=== PATIENT | female | born 1935 | race Caucasian/White ===

== ENCOUNTER 2020-05-31 07:21 | Day surgery (SDC) | payer MEDICARE, MEDICAID, SELFPAY ==
[2020-05-31] MEDS: cosyntropin 0.25 mg SDV IVP (09:05)
[2020-05-31 09:14] VITALS: BP 156/31; PULSE 65; RESP 18; TEMP 36.2; O2SAT 100; BMI 47.8
[2020-05-31 11:39] LABS: Cosyntropin 1 Hour 30.58 mcg/dL
[2020-05-31 11:40] LABS: Cosyntropin 30 Minute 22.55 mcg/dL
[2020-05-31 11:41] LABS: Cosyntropin Baseline 13.64 mcg/dL
== END 2020-05-31 09:00 ==
PROVIDERS: PCP Family Medicine; Visit Provider Physician Assistant
DX: E87.5 Hyperkalemia (principal); E87.1 Hypo-osmolality and hyponatremia
CPT/HCPCS: 36415; 82533; 96374; 96375; J0834

== ENCOUNTER → 2022-10-24 13:57 | Outpatient (BNVA) | payer MEDICARE, MEDICAID, SELFPAY | PROVIDERS: PCP Family Medicine; Visit Provider Internal Medicine Cardiovascular Disease | DX: I48.0 Paroxysmal atrial fibrillation (principal); I35.1 Nonrheumatic aortic (valve) insufficiency; E78.5 Hyperlipidemia, unspecified; E03.9 Hypothyroidism, unspecified; I35.8 Other nonrheumatic aortic valve disorders; I11.0 Hypertensive heart disease with heart failure; I50.32 Chronic diastolic (congestive) heart failure; Z87.891 Personal history of nicotine dependence | CPT/HCPCS: 99214 ==

== ENCOUNTER 2023-04-19 21:38 | Emergency (ER) | payer MEDICARE, MEDICAID, SELFPAY ==
[2023-04-19 21:51] VITALS: BP 183/58; PULSE 74; RESP 15; O2SAT 98
--- NOTE | 2023-04-19 21:53 | CTR_ITS ---
PROCEDURE INFORMATION: Exam: CT Head Without Contrast Exam date and time: 04/19/2023 10:07 PM Age: 87 years old Clinical indication: Injury or trauma; Fall; Blunt trauma (contusions or hematomas); Consciousness not specified TECHNIQUE: Imaging protocol: Computed tomography of the head without contrast. Radiation optimization: All CT scans at this facility use at least one of these dose optimization techniques: automated exposure control; mA and/or kV adjustment per patient size (includes targeted exams where dose is matched to clinical indication); or iterative reconstruction. REPORTING DATA: Count of CT and Cardiac NM exams in prior 12 months: This patient has received 0 known CTs and 0 known cardiac nuclear medicine studies in the 12 months prior to the current study. COMPARISON: MR head wo con* [id number] 12/22/2020 12:12 PM RADIATION DOSE METRICS: Total DLP (mGy-cm): 1196.98 FINDINGS: Brain: There is moderate cerebral atrophy. There is mild diffuse heterogeneity of the white matter attenuation, consistent with chronic white matter ischemic changes. Negative for intracranial hemorrhage. Negative for mass effect on the brain. Negative for midline shift of brain. Subtle focal [place] in the right internal capsule anterior limb stable from comparison. Cerebral ventricles: No ventriculomegaly. Paranasal sinuses: Partially opacified left sphenoid sinus. Mastoid air cells: Visualized mastoid air cells are well aerated. Bones/joints: Unremarkable. No acute fracture. Soft tissues: Unremarkable. CT/CT head wo con* [id number] IMPRESSION: Negative for acute intracranial pathology.
--- NOTE | 2023-04-19 21:53 | CTR_ITS ---
PROCEDURE INFORMATION: Exam: CT Cervical Spine Without Contrast Exam date and time: 04/19/2023 10:11 PM Age: 87 years old Clinical indication: Injury or trauma; Fall; Blunt trauma TECHNIQUE: Imaging protocol: Computed tomography of the cervical spine without contrast. Radiation optimization: All CT scans at this facility use at least one of these dose optimization techniques: automated exposure control; mA and/or kV adjustment per patient size (includes targeted exams where dose is matched to clinical indication); or iterative reconstruction. REPORTING DATA: Count of CT and Cardiac NM exams in prior 12 months: This patient has received 0 known CTs and 0 known cardiac nuclear medicine studies in the 12 months prior to the current study. COMPARISON: CT head wo con* [id number] 04/19/2023 10:07 PM RADIATION DOSE METRICS: Total DLP (mGy-cm): 341.48 FINDINGS: Bones/joints: No acute fracture. Mild severity degenerative anterolisthesis of C4-C5 and C5-C6.The cervical spine demonstrates severe degenerative changes at multiple levels. Lungs: Lung apices are normal. Soft tissues: Unremarkable. CT/CT cervical spin wo con* [id number] IMPRESSION: No acute findings.
--- NOTE | 2023-04-19 22:06 | ED_ITS ---
Documented by User: Robbie Birmingham MD 04/19/23 23:14 HPI - Fall General: Chief Complaint: Fall Stated Complaint: AMS/Lac RT elbow Time Seen by Provider: 04/19/23 21:46 Source: patient Mode of arrival: EMS Limitations: no limitations History of Present Illness: 87-year-old female is here from halfway she was found down on the floor after a fall she does not remember her fall states that she does have a slight headache and has a elbow laceration EMS states halfway said that she is a little confused at first but now she is answering all my questions appropriately and has no complaints besides a headache. Associated symptoms-after fall: Reports headache(s); Denies abdominal pain, chest pain or neck pain Review of Systems Const: Denies: fever(s) or chills ENMT: Denies: throat pain or dental pain Card: Denies: chest pain Resp: Denies: dyspnea GI: Denies: abdominal pain or nausea Musc: Denies: neck pain or back pain Skin/Breast: Denies: rash Neuro: Reports: headache(s) PFSH ED PFSH: Medical History Aortic regurgitation Aortic valve endocarditis Bacteremia Enterococcus faecalis and staph epidermidis, received vancomycin and doxycycline Diastolic dysfunction GERD (gastroesophageal reflux disease) Heart failure HTN (hypertension) Hyperlipidemia Hypothyroidism Infective endocarditis Liver fibrosis Recurrent UTI Right humeral fracture S/P transesophageal echocardiogram ([facility]) Thrombocytopenia Type 2 diabetes mellitus Surgical History H/O: hysterectomy History of salpingoophorectomy Hx of cholecystectomy Family History Father Tuberculosis Social History Smoking and tobacco status: former smoker Alcohol intake: never Substance/Drug Use: never Marital status: / Physical Exam Const: COMMON NORMALS: patient oriented x3 HENMT: COMMON NORMALS: normocephalic and atraumatic HEAD & SCALP: normocephalic and atraumatic Eye: COMMON NORMALS: Equal, round and reactive pupils present and EOMs intact bilaterally PUPIL: Yes Equal, round and reactive pupils present Neck/C-Spine: COMMON NORMALS: full ROM and supple Chest: COMMONS NORMALS: normal inspection of the chest and normal palpation of entire chest wall Resp: COMMON NORMALS: normal respiratory effort, No retractions, No use of accessory muscles and clear to auscultation bilaterally AUSCULTATION: clear to auscultation bilaterally Cardio: COMMON NORMALS: regular rate, regular rhythm and No murmurs present (Cardio) RATE: regular rate RHYTHM: regular rhythm GI: COMMON NORMALS: Normal to inspection, nondistended, normoactive bowel sounds present, Soft to palpation, non-tender and no masses PALPATION: Yes Soft to palpation Extremity: COMMON NORMALS: full ROM Neuro: COMMON NORMALS: patient oriented x3, moves all extremities and no focal motor deficits Psych: COMMON NORMALS: mental status grossly normal, Normal thought process present and cooperative THOUGHT PROCESS: Normal thought process present Skin: COMMON NORMALS: no rashes or lesions noted NARRATIVE SKIN EXAM: 1cm laceration to right elbow GENERAL SKIN EXAM: no rashes or lesions noted Course Vital Signs: Vital signs: Vital Signs Pulse Rate 74 04/19/23 21:51 Respiratory Rate 15 04/19/23 21:51 Blood Pressure 183/58 04/19/23 21:51 Pulse Oximetry 98 04/19/23 21:51 Oxygen Delivery Me thod Room Air 04/19/23 21:51 MDM - Fall Lab Data 04/19/23 22:40 Radiology Impressions Cervical Spine CT 04/19/23 21:53 IMPRESSION: No acute findings. Head CT 04/19/23 21:53 IMPRESSION: Negative for acute intracranial pathology. Elbow X-Ray 04/19/23 22:07 IMPRESSION: Soft tissue laceration. No fracture is identified. Laboratory Results WBC 3.8 10^3/uL (4.0-10.0) L 04/19/23 22:40 RBC 3.29 10^6/uL (4.1-5.3) L 04/19/23 22:40 Hgb 10.3 g/dL (11.5-15.3) L 04/19/23 22:40 Hct 33.4 % (37.0-47.0) L 04/19/23 22:40 MCV 101.5 fl (81-99) H 04/19/23 22:40 MCH 31.3 pg (28.0-34.0) 04/19/23 22:40 MCHC 30.8 g/dL (30.0-36.0) 04/19/23 22:40 RDW 12.7 % (12.1-15.1) 04/19/23 22:40 Plt Count 66 10^3/cmm (130-400) L 04/19/23 22:40 MPV 11.7 fL (7.4-10.4) H 04/19/23 22:40 Neut % (Auto) 65.9 % 04/19/23 22:40 Lymph % (Auto) 21.8 % 04/19/23 22:40 [place] % (Auto) 9.4 % 04/19/23 22:40 Eos % (Auto) 2.1 % 04/19/23 22:40 Baso % (Auto) 0.3 % 04/19/23 22:40 Neut # (Auto) 2.51 10^3/uL (1.8-7.7) 04/19/23 22:40 Lymph # (Auto) 0.8 10^3/uL (0.8-4.8) 04/19/23 22:40 [place] # (Auto) 0.4 10^3/uL (0.2-0.9) 04/19/23 22:40 Eos # (Auto) 0.1 10^3/uL (0.0-0.8) 04/19/23 22:40 Baso # (Auto) 0.0 10^3/uL (0.0-0.1) 04/19/23 22:40 Nucleated RBC % (auto) 0 % 04/19/23 22:40 Nucleated RBCs # 0.0 /100WBC 04/19/23 22:40 Discharge Plan Discharge Patient Disposition: Home Clinical Impression: Fall, Closed head injury, Laceration of elbow, right Condition: Stable Prescriptions: No Action trazodone 50 mg tablet 75 mg PO DAILY@19 Myrbetriq 25 mg tablet extended release 24 hr 25 mg PO DAILY@07 levothyroxine 125 mcg capsule 125 mcg PO DAILY@05 isosorbide mononitrate 60 mg tablet extended release 24 hr 60 mg PO DAILY@07 duloxetine [Cymbalta] 60 mg capsule,delayed release(DR/EC) 60 mg PO DAILY@07 Rx Instructions: take with 30mg to equal 90mg sotalol 80 mg tablet 80 mg PO BID@, furosemide 40 mg tablet 40 mg PO DAILY aspirin [Adult Aspirin Regimen] 81 mg tablet,delayed release (DR/EC) 81 mg PO DAILY pantoprazole 40 mg tablet,delayed release (DR/EC) 40 mg PO DAILY tramadol 50 mg tablet 50 mg PO Q6H PRN magnesium hydroxide [Milk of Magnesia] 400 mg/5 mL Suspension 30 ml PO DAILY PRN (Reason: Constipation) calcium carbonate [Tums] 200 mg calcium (500 mg) Tablet,Chewable 400 mg PO Q4H PRN (Reason: Indigestion) polyethylene glycol 3350 [Miralax] 17 gram/dose Powder 17 g PO DAILY@07 Rx Instructions: mix in 8oz of liquid albuterol sulfate 2.5 mg /3 mL (0.083 %) solution for nebulization 2.5 mg inhalation Q6H PRN (Reason: cough/congestion) ondansetron HCl [Zofran] 4 mg Tablet 4 mg PO Q8H PRN (Reason: n/v) acetaminophen [Tylenol] 325 mg Tablet 650 mg PO Q8H PRN (Reason: Pain) Rx Instructions: not to exceed 4 g of tylenol in 24 hours if pt request prn oxycodone/tylenol Fleet Enema 19-7 gram/118 mL Enema 118 ml [place] DAILY PRN (Reason: Constipation) folic acid 1 mg Tablet 1 mg PO DAILY@07 Culturelle 10 billion cell Capsule 1 cap PO DAILY@07 amoxicillin 875 mg Tablet 875 mg PO BID@ lorazepam 0.5 mg Tablet 0.5 mg PO BID@, Cymbalta 30 mg Capsule,Delayed Release(Dr/Ec) 30 mg PO DAILY@07 Rx Instructions: take with 60mg cap to equal 90mg Aspercreme (lidocaine) 4 % Adhesive Patch,Medicated 1 patch TOPICAL BID Rx Instructions: to right shoulder pain Percocet 5-325 mg Tablet 1 tab PO BID@, cyanocobalamin (vitamin B-12) 1,000 mcg/mL Solution See Rx Instructions .ROUTE .COMPLEX Rx Instructions: 1ml intramuscular one time a month Nitrostat 0.4 mg Tablet, Sublingual 0.4 mg SUBLINGUAL Q5M PRN (Reason: Chest Pain) Voltaren 1 % Gel See Rx Instructions .ROUTE .COMPLEX Rx Instructions: apply to right shoulder bid prn Preparation H 0.25-14-74.9 % Ointment 1 applic [place] DAILY PRN (Reason: Hemorrhoids) Discharge Orders: Discharge ED (Routine); Ordered 04/19/23 Ordered By: Robbie Birmingham Referrals: Royal Shepherd MD [Primary Care Provider] - 1-3 days Discharge Diet: Advance as tolerated Discharge Activity: Resume usual activity Patient Instructions: Laceration (ED), Head Injury (ED) Coding Level of Care Code ED 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 Chg Fwd Documented by User: CHATO Pavon 04/19/23 23:05 HPI - Fall General: Chief Complaint: Fall Stated Complaint: AMS/Lac RT elbow Time Seen by Provider: 04/19/23 21:46 PFSH ED PFSH: Medical History Aortic regurgitation Aortic valve endocarditis Bacteremia Enterococcus faecalis and staph epidermidis, received vancomycin and doxycycline Diastolic dysfunction GERD (gastroesophageal reflux disease) Heart failure HTN (hypertension) Hyperlipidemia Hypothyroidism Infective endocarditis Liver fibrosis Recurrent UTI Right humeral fracture S/P transesophageal echocardiogram ([facility]) Thrombocytopenia Type 2 diabetes mellitus Surgical History H/O: hysterectomy History of salpingoophorectomy Hx of cholecystectomy Family History Father Tuberculosis Social History Smoking and tobacco status: former smoker Alcohol intake: never Substance/Drug Use: never Marital status: / Procedures Laceration Laceration 1: Site: upper extremity (left elbow) Side (If applicable): left Size (cm): 2.5 Description: linear and clean Depth: simple, single layer Local Anesthetic: lidocaine 1% Amount of anesthesia used (mL): 5 Pre-repair: irrigated extensively (With normal saline) Skin layer closed with: nylon Size (cm): 4-0 Number of sutures: 4 Technique: simple, interrupted Course Vital Signs: Vital signs: Vital Signs Pulse Rate 74 04/19/23 21:51 Respiratory Rate 15 04/19/23 21:51 Blood Pressure 183/58 04/19/23 21:51 Pulse Oximetry 98 04/19/23 21:51 Oxygen Delivery Me thod Room Air 04/19/23 21:51 MDM - Fall Medical Decision Making Patient has a superficial linear laceration to right elbow at approximately 2.[address] Birmingham asked if I could perform the laceration repair. I was not involved in any other care of patient. Laceration site was irrigated with normal saline. Lidocaine 1% was used as local and 4 sutures were placed to close up laceration. See procedure note for details. I was not involved in any other aspect of patient's care. Richie Swift PA-C Lab Data 04/19/23 22:40 Radiology Impressions Cervical Spine CT 04/19/23 21:53 IMPRESSION: No acute findings. Head CT 04/19/23 21:53 IMPRESSION: Negative for acute intracranial pathology. Elbow X-Ray 04/19/23 22:07 IMPRESSION: Soft tissue laceration. No fracture is identified. Laboratory Results WBC 3.8 10^3/uL (4.0-10.0) L 04/19/23 22:40 RBC 3.29 10^6/uL (4.1-5.3) L 04/19/23 22:40 Hgb 10.3 g/dL (11.5-15.3) L 04/19/23 22:40 Hct 33.4 % (37.0-47.0) L 04/19/23 22:40 MCV 101.5 fl (81-99) H 04/19/23 22:40 MCH 31.3 pg (28.0-34.0) 04/19/23 22:40 MCHC 30.8 g/dL (30.0-36.0) 04/19/23 22:40 RDW 12.7 % (12.1-15.1) 04/19/23 22:40 Plt Count 66 10^3/cmm (130-400) L 04/19/23 22:40 MPV 11.7 fL (7.4-10.4) H 04/19/23 22:40 Neut % (Auto) 65.9 % 04/19/23 22:40 Lymph % (Auto) 21.8 % 04/19/23 22:40 [place] % (Auto) 9.4 % 04/19/23 22:40 Eos % (Auto) 2.1 % 04/19/23 22:40 Baso % (Auto) 0.3 % 04/19/23 22:40 Neut # (Auto) 2.51 10^3/uL (1.8-7.7) 04/19/23 22:40 Lymph # (Auto) 0.8 10^3/uL (0.8-4.8) 04/19/23 22:40 [place] # (Auto) 0.4 10^3/uL (0.2-0.9) 04/19/23 22:40 Eos # (Auto) 0.1 10^3/uL (0.0-0.8) 04/19/23 22:40 Baso # (Auto) 0.0 10^3/uL (0.0-0.1) 04/19/23 22:40 Nucleated RBC % (auto) 0 % 04/19/23 22:40 Nucleated RBCs # 0.0 /100WBC 04/19/23 22:40 Discharge Plan Discharge Patient Disposition: Home Clinical Impression: Fall, Closed head injury, Laceration of elbow, right Condition: Stable Prescriptions: No Action trazodone 50 mg tablet 75 mg PO DAILY@19 Myrbetriq 25 mg tablet extended release 24 hr 25 mg PO DAILY@07 levothyroxine 125 mcg capsule 125 mcg PO DAILY@05 isosorbide mononitrate 60 mg tablet extended release 24 hr 60 mg PO DAILY@07 duloxetine [Cymbalta] 60 mg capsule,delayed release(DR/EC) 60 mg PO DAILY@07 Rx Instructions: take with 30mg to equal 90mg sotalol 80 mg tablet 80 mg PO BID@07,19 furosemide 40 mg tablet 40 mg PO DAILY aspirin [Adult Aspirin Regimen] 81 mg tablet,delayed release (DR/EC) 81 mg PO DAILY pantoprazole 40 mg tablet,delayed release (DR/EC) 40 mg PO DAILY tramadol 50 mg tablet 50 mg PO Q6H PRN magnesium hydroxide [Milk of Magnesia] 400 mg/5 mL Suspension 30 ml PO DAILY PRN (Reason: Constipation) calcium carbonate [Tums] 200 mg calcium (500 mg) Tablet,Chewable 400 mg PO Q4H PRN (Reason: Indigestion) polyethylene glycol 3350 [Miralax] 17 gram/dose Powder 17 g PO DAILY@07 Rx Instructions: mix in 8oz of liquid albuterol sulfate 2.5 mg /3 mL (0.083 %) solution for nebulization 2.5 mg inhalation Q6H PRN (Reason: cough/congestion) ondansetron HCl [Zofran] 4 mg Tablet 4 mg PO Q8H PRN (Reason: n/v) acetaminophen [Tylenol] 325 mg Tablet 650 mg PO Q8H PRN (Reason: Pain) Rx Instructions: not to exceed 4 g of tylenol in 24 hours if pt request prn oxycodone/tylenol Fleet Enema 19-7 gram/118 mL Enema 118 ml [place] DAILY PRN (Reason: Constipation) folic acid 1 mg Tablet 1 mg PO DAILY@07 Culturelle 10 billion cell Capsule 1 cap PO DAILY@07 amoxicillin 875 mg Tablet 875 mg PO BID@07,19 lorazepam 0.5 mg Tablet 0.5 mg PO BID@07,19 Cymbalta 30 mg Capsule,Delayed Release(Dr/Ec) 30 mg PO DAILY@07 Rx Instructions: take with 60mg cap to equal 90mg Aspercreme (lidocaine) 4 % Adhesive Patch,Medicated 1 patch TOPICAL BID Rx Instructions: to right shoulder pain Percocet 5-325 mg Tablet 1 tab PO BID@,19 cyanocobalamin (vitamin B-12) 1,000 mcg/mL Solution See Rx Instructions .ROUTE .COMPLEX Rx Instructions: 1ml intramuscular one time a month Nitrostat 0.4 mg Tablet, Sublingual 0.4 mg SUBLINGUAL Q5M PRN (Reason: Chest Pain) Voltaren 1 % Gel See Rx Instructions .ROUTE .COMPLEX Rx Instructions: apply to right shoulder bid prn Preparation H 0.25-14-74.9 % Ointment 1 applic [place] DAILY PRN (Reason: Hemorrhoids) Discharge Orders: Discharge ED (Routine); Ordered 04/19/23 Ordered By: Robbie Birmingham Referrals: Royal Shepherd MD [Primary Care Provider] - 1-3 days Discharge Diet: Advance as tolerated Discharge Activity: Resume usual activity Patient Instructions: Laceration (ED), Head Injury (ED) Coding Level of Care Code ED 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 Anali Roth
--- NOTE | 2023-04-19 22:07 | XRR_ITS ---
PROCEDURE INFORMATION: Exam: XR Right Elbow Exam date and time: 04/19/2023 10:14 PM Age: 87 years old Clinical indication: Injury or trauma; Fall; Laceration; Elbow; Right TECHNIQUE: Imaging protocol: Radiologic exam of the right elbow. Views: 3 or more views. COMPARISON: CR XR shoulder RT min 2V* [id number] 12/18/2020 2:01 PM FINDINGS: Bones/joints: There is no evidence for fracture or dislocation. Soft tissues: There is irregularity of the soft tissues posterior to the distal humerus and a small amount of air within the soft tissues consistent with a history of laceration. No opaque foreign body is identified. XR/XR elbow RT min 3V* [id number] IMPRESSION: Soft tissue laceration. No fracture is identified.
[2023-04-19 22:51] LABS: Basophils % 0.3 %; Eosinophils # 0.1 10^3/uL (0.0-0.8); Eosinophils % 2.1 %; Hematocrit 33.4 % (37.0-47.0); Hemoglobin 10.3 g/dL (11.5-15.3); Lymphocytes # 0.8 10^3/uL (0.8-4.8); Lymphocytes % 21.8 %; Mean Corpuscular HGB Conc 30.8 g/dL (30.0-36.0); Mean Corpuscular Hemoglobin 31.3 pg (28.0-34.0); Mean Corpuscular Volume 101.5 fl (81-99); Mean Platelet Volume 11.7 fL (7.4-10.4); Monocytes # 0.4 10^3/uL (0.2-0.9); Monocytes % 9.4 %; Neutrophils # 2.51 10^3/uL (1.8-7.7); Neutrophils % 65.9 %; Nucleated Red Blood Cells % 0 %; Platelet Count 66 10^3/cmm (130-400); Red Blood Count 3.29 10^6/uL (4.1-5.3); Red Cell Distribution Width 12.7 % (12.1-15.1); White Blood Count 3.8 10^3/uL (4.0-10.0)
== END 2023-04-19 23:52 | disposition home or self-care (01) ==
PROVIDERS: Emergency Provider Emergency Medicine; PCP Family Medicine
DX: S09.8XXA Other specified injuries of head, initial encounter (principal); S51.011A Laceration without foreign body of right elbow, initial encounter; Z79.82 Long term (current) use of aspirin; Z87.891 Personal history of nicotine dependence; I11.0 Hypertensive heart disease with heart failure; I50.9 Heart failure, unspecified; E78.5 Hyperlipidemia, unspecified; E11.9 Type 2 diabetes mellitus without complications; W19.XXXA Unspecified fall, initial encounter; Y92.129 Unspecified place in nursing home as the place of occurrence of the external cause
CPT/HCPCS: 36415; 70450; 72125; 73080; 85025; 99285

== ENCOUNTER 2023-05-21 08:52 | Outpatient (CLI) | payer MEDICARE, MEDICAID, SELFPAY ==
[2023-05-21 09:37] LABS: Potassium 6.3 mmol/L (3.5-5.1)
== END 2023-05-21 08:53 | disposition home or self-care (01) ==
LOC: LAB 08:54
PROVIDERS: PCP Family Medicine; Visit Provider Family Medicine
DX: Z01.89 Encounter for other specified special examinations (principal)
CPT/HCPCS: 84132

== ENCOUNTER → 2023-10-22 15:35 | Outpatient (BNVA) | payer MEDICARE, MEDICAID, SELFPAY | PROVIDERS: PCP Family Medicine; Visit Provider Internal Medicine Cardiovascular Disease | DX: I48.91 Unspecified atrial fibrillation (principal); I11.0 Hypertensive heart disease with heart failure; I50.32 Chronic diastolic (congestive) heart failure; E78.5 Hyperlipidemia, unspecified; E03.9 Hypothyroidism, unspecified; I35.8 Other nonrheumatic aortic valve disorders; I48.92 Unspecified atrial flutter | CPT/HCPCS: 93005; 99214 ==

== ENCOUNTER 2024-01-03 16:19 | Emergency (ER) | payer MEDICARE, MEDICAID, SELFPAY ==
[2024-01-03] VITALS (9 sets, daily range): BP systolic 155–215; BP diastolic 34–76; PULSE 65–94; RESP 20–22; TEMP 36.8; O2SAT 93–100; BMI 26.9
--- NOTE | 2024-01-03 16:21 | CTR_ITS ---
PROCEDURE INFORMATION: Exam: CT Maxillofacial Without Contrast Exam date and time: 01/03/2024 4:34 PM Age: 88 years old Clinical indication: Injury or trauma; Fall; Blunt trauma (contusions or hematomas); Head/scalp and orbit/periorbital; Loss of consciousness not known; Right TECHNIQUE: Imaging protocol: Computed tomography of the face without contrast. Radiation optimization: All CT scans at this facility use at least one of these dose optimization techniques: automated exposure control; mA and/or kV adjustment per patient size (includes targeted exams where dose is matched to clinical indication); or iterative reconstruction. COMPARISON: CT head wo con* [id number] 01/03/2024 4:34 PM RADIATION DOSE METRICS: Total DLP (mGy-cm): 531.9 FINDINGS: Orbital cavities: Orbits are normal. Globes are unremarkable. Bones/joints: No acute fracture. Paranasal sinuses: Mild diffuse paranasal sinus mucosal thickening. No air-fluid levels. Mastoid air cells: Small bilateral mastoid effusions. Soft tissues: Right frontal scalp hematoma extending over the right periorbital region. CT/CT facial bones wo con* [id number] IMPRESSION: No acute findings.
--- NOTE | 2024-01-03 16:21 | CTR_ITS ---
PROCEDURE INFORMATION: Exam: CT Head Without Contrast Exam date and time: 01/03/2024 4:34 PM Age: 88 years old Clinical indication: Injury or trauma; Fall; Blunt trauma (contusions or hematomas) TECHNIQUE: Imaging protocol: Computed tomography of the head without contrast. Radiation optimization: All CT scans at this facility use at least one of these dose optimization techniques: automated exposure control; mA and/or kV adjustment per patient size (includes targeted exams where dose is matched to clinical indication); or iterative reconstruction. COMPARISON: CT head wo con* [id number] 04/19/2023 10:07 PM RADIATION DOSE METRICS: Total DLP (mGy-cm): 901.3 FINDINGS: Brain: No intracranial hemorrhage. There is global parenchymal volume loss. Periventricular white matter hypoattenuation is nonspecific but most likely due to small vessel disease. No evidence of acute territorial infarct or cerebral edema. No mass effect or midline shift. Cerebral ventricles: Prominent ventricles likely secondary to volume loss. Paranasal sinuses: Mild diffuse paranasal sinus mucosal thickening. Mastoid air cells: Small amount of bilateral mastoid fluid. Bones/joints: Unremarkable. No acute fracture. Soft tissues: Right frontal scalp hematoma. CT/CT head wo con* [id number] IMPRESSION: No acute intracranial findings.
--- NOTE | 2024-01-03 16:21 | CTR_ITS ---
PROCEDURE INFORMATION: Exam: CT Cervical Spine Without Contrast Exam date and time: 01/03/2024 4:34 PM Age: 88 years old Clinical indication: Injury or trauma; Fall; Blunt trauma TECHNIQUE: Imaging protocol: Computed tomography of the cervical spine without contrast. Radiation optimization: All CT scans at this facility use at least one of these dose optimization techniques: automated exposure control; mA and/or kV adjustment per patient size (includes targeted exams where dose is matched to clinical indication); or iterative reconstruction. COMPARISON: CT cervical spin wo con* [id number] 04/19/2023 10:11 PM RADIATION DOSE METRICS: Total DLP (mGy-cm): 529.8 FINDINGS: Bones/joints: Mild anterolisthesis C4-C5 and C7-T1. No fracture. Diffuse degenerative disc disease and facet arthropathy. Lungs: Lung apices are normal. Soft tissues: Unremarkable. CT/CT cervical spin wo con* [id number] IMPRESSION: No acute findings.
--- NOTE | 2024-01-03 16:46 | ED_ITS ---
HPI - Fall General: Chief Complaint: Fall Stated Complaint: FACIAL TRAUMA S/P FALL Time Seen by Provider: 01/03/24 16:21 Source: patient Mode of arrival: EMS History of Present Illness: 88-year-old female presents emergency ro om with complaint of a fall. She is on oral anticoagulation she was sitting on the toilet and bent over to try to put her sock off she lost her balance and pitched forward hit her right eyes she fell out on the toilet seat. She did not lose consciousness. There is no vomiting she is awake and alert can remember the event. She has a significant hematoma overlying the eye and the eyelid itself is completely swollen shut. Steri-Strips are in place from a laceration above the right eye. She denies any other injuries she complained of her right arm being sore but she related to the blood pressure cuff blood pressure cuff was not pumped up she had no pain we could move her arm without any difficulty complaint: fall Onset (ago): minute(s) Fall from: chair (Toilet seat) Place fall occurred: detention/SNF Loss of consciousness: None Prolonged down time: no Symptoms prior to fall: none Context: tripped/slipped Location of injury: head and face Associated symptoms-after fall: Denies abdominal pain, chest pain or neck pain Review of Systems Const: Denies: fever(s) or chills Card: Denies: chest pain Resp: Denies: dyspnea GI: Denies: abdominal pain : Denies: dysuria, urinary frequency or urinary urgency Musc: Denies: neck pain or back pain Skin/Breast: Denies: rash PFSH ED PFSH: Medical History Liver fibrosis S/P transesophageal echocardiogram ([facility]) Right humeral fracture Infective endocarditis Diastolic dysfunction Bacteremia Enterococcus faecalis and staph epidermidis, received vancomycin and doxycycline Thrombocytopenia Recurrent UTI Type 2 diabetes mellitus Heart failure Aortic regurgitation Aortic valve endocarditis GERD (gastroesophageal reflux disease) Hypothyroidism HTN (hypertension) Hyperlipidemia Surgical History History of salpingoophorectomy Hx of cholecystectomy H/O: hysterectomy Family History Father Tuberculosis Social History Smoking and tobacco/nicotine status: former use of tobacco/nicotine Alcohol intake: never Substance/Drug Use: never Marital status: / Physical Exam Const: GENERAL APPEARANCE: cooperative and comfortable ORIENTATION/CONSCIOUSNESS: Yes awake HENMT: COMMON NORMALS: normocephalic and hearing grossly normal bilaterally HEAD & SCALP: normocephalic OTHER: Steri-Strip laceration above the right eye no active bleeding wounds well- approximated Resp: COMMON NORMALS: normal respiratory effort, No retractions, No use of accessory muscles and clear to auscultation bilaterally AUSCULTATION: clear to auscultation bilaterally Cardio: COMMON NORMALS: regular rate, regular rhythm and No murmurs present (Cardio) RATE: regular rate RHYTHM: regular rhythm GI: COMMON NORMALS: Soft to palpation and No hepatosplenomegaly present AUSCULTATION: Yes normoactive bowel sounds PALPATION: Yes Soft to palpation, No Tenderness to palpation present (GI), No Guarding due to palpation present (GI) and Yes No hepatosplenomegaly present Extremity: COMMON NORMALS: normal to inspection, capillary refill normal, no clubbing, cyanosis or edema, no calf tenderness and no pedal edema Skin: COMMON NORMALS: no rashes or lesions noted GENERAL SKIN EXAM: no rashes or lesions noted Course Vital Signs: Vital signs: Vital Signs Temperature 98.2 F 01/03/24 16:22 Pulse Rate 65 01/03/24 16:22 Respiratory Rate 22 H 01/03/24 16:22 Blood Pressure 215/42 01/03/24 16:22 Pulse Oximetry 93 01/03/24 16:22 Oxygen Delivery Me thod Nasal Cannula 01/03/24 16:22 Oxygen Flow Rate 3 01/03/24 16:22 MDM - Fall Medical Decision Making CT negative. Topical antibiotic ointment to the wound above the right eye. Follow-up as needed. Medical Records I reviewed the patient's medical records. Lab Data I reviewed the patient's lab results. Radiology Impressions Cervical Spine CT 01/03/24 16:21 IMPRESSION: No acute findings. Face CT 01/03/24 16:21 IMPRESSION: No acute findings. Head CT 01/03/24 16:21 IMPRESSION: No acute intracranial findings. All radiology interpretation(s) finalized by discharge Discharge Plan Discharge Patient Disposition: Home Clinical Impression: Fall, Facial hematoma Condition: Stable Prescriptions: No Action trazodone 50 mg tablet 75 mg PO DAILY@ Myrbetriq 25 mg tablet extended release 24 hr 25 mg PO DAILY@07 levothyroxine 125 mcg capsule 125 mcg PO DAILY@05 isosorbide mononitrate 60 mg tablet extended release 24 hr 60 mg PO DAILY@ duloxetine [Cymbalta] 60 mg capsule,delayed release(DR/EC) 60 mg PO DAILY@07 Rx Instructions: take with 30mg to equal 90mg sotalol 80 mg tablet 80 mg PO BID@, furosemide 40 mg tablet 40 mg PO DAILY aspirin [Adult Aspirin Regimen] 81 mg tablet,delayed release (DR/EC) 81 mg PO DAILY pantoprazole 40 mg tablet,delayed release (DR/EC) 40 mg PO DAILY tramadol 50 mg tablet 50 mg PO Q6H PRN magnesium hydroxide [Milk of Magnesia] 400 mg/5 mL Suspension 30 ml PO DAILY PRN (Reason: Constipation) calcium carbonate [Tums] 200 mg calcium (500 mg) Tablet,Chewable 400 mg PO Q4H PRN (Reason: Indigestion) polyethylene glycol 3350 [Miralax] 17 gram/dose Powder 17 g PO DAILY@07 Rx Instructions: mix in 8oz of liquid albuterol sulfate 2.5 mg /3 mL (0.083 %) solution for nebulization 2.5 mg inhalation Q6H PRN (Reason: cough/congestion) ondansetron HCl [Zofran] 4 mg Tablet 4 mg PO Q8H PRN (Reason: n/v) acetaminophen [Tylenol] 325 mg Tablet 650 mg PO Q8H PRN (Reason: Pain) Rx Instructions: not to exceed 4 g of tylenol in 24 hours if pt request prn oxycodone/tylenol Fleet Enema 19-7 gram/118 mL Enema 118 ml NV DAILY PRN (Reason: Constipation) folic acid 1 mg Tablet 1 mg PO DAILY@ Culturelle 10 billion cell Capsule 1 cap PO DAILY@ amoxicillin 875 mg Tablet 875 mg PO BID@, lorazepam 0.5 mg Tablet 0.5 mg PO BID@, Cymbalta 30 mg Capsule,Delayed Release(Dr/Ec) 30 mg PO DAILY@ Rx Instructions: take with 60mg cap to equal 90mg Aspercreme (lidocaine) 4 % Adhesive Patch,Medicated 1 patch TOPICAL BID Rx Instructions: to right shoulder pain Percocet 5-325 mg Tablet 1 tab PO BID@,19 cyanocobalamin (vitamin B-12) 1,000 mcg/mL Solution See Rx Instructions .ROUTE .COMPLEX Rx Instructions: 1ml intramuscular one time a month Nitrostat 0.4 mg Tablet, Sublingual 0.4 mg SUBLINGUAL Q5M PRN (Reason: Chest Pain) Voltaren 1 % Gel See Rx Instructions .ROUTE .COMPLEX Rx Instructions: apply to right shoulder bid prn Preparation H 0.25-14-74.9 % Ointment 1 applic NV DAILY PRN (Reason: Hemorrhoids) Discharge Orders: Discharge ED (Routine); Ordered 01/03/24 Ordered By: Jonathan Singh Referrals: Royal Shepherd MD [Primary Care Provider] - Discharge Diet: Usual diet Discharge Activity: Increase activity as tolerated Patient Instructions: Opioid Safety, Pain Management Activity Restrictions/Additional Instructions: Thank you for choosing [facility] for your healthcare needs today. Please realize this is an emergency room and that we are providing you with a medical screening exam and this may not be complete and all inclusive of all the testing and or work up that you may need to determine your ailment or severity of your illness. It is very important that you follow up as instructed or that you return to the Emergency Department should you have concerns or if your condition changes or worsens in any way. You were seen for injuries from a fall. Apply [id number] topical antibiotic ointment to the wound on the forehead. CTs of your head neck and facial bones did not show any acute fractures or significant injury. The swelling around the right eye will likely remain for several days to a week. You also noticed some settling of some the bruising into the cheek even as far as the neck possibly over the next several days. Coding Level of Care Code ED [employer] for Anali Roth
--- NOTE | 2024-01-03 16:58 | ECG_ITS ---
[facility] Test Date: 2024-01-03 Pat Name: Karley Crawford Department: Room: Gender: Female Tableau Analyst: : 1935 Requested By: Jonathan Duffy Order Number: [id number] Marisel MD: John De Leon M.D. Measurements Intervals Bennett Rate: 63 P: 14 FL: 137 QRS: -16 QRSD: 106 T: 17 QT: 429 QTc: 442 Interpretive Statements SINUS RHYTHM POSSIBLE LEFT ATRIAL ENLARGEMENT [-0.1mV P-WAVE IN V1/V2] INCOMPLETE RIGHT BUNDLE BRANCH BLOCK [90+ ms QRS DURATION, TERMINAL R IN V1/V2, 40+ ms S IN I/aVL/V4/V5/V6] POSSIBLE LEFT VENTRICULAR HYPERTROPHY [VOLTAGE CRITERIA PLUS LAE OR QRS WIDENING] Compared to ECG 10/22/2023 15:45:03 Incomplete right bundle-branch block now present Atrial flutter no longer present ST (T wave) deviation no longer present Electronically Signed On 01-04-2024 20:51:21 CIRCUS TRAINER by John De Leon M.D. [id number]
== END 2024-01-03 18:45 | disposition home or self-care (01) ==
PROVIDERS: Emergency Provider Family Medicine; PCP Family Medicine
DX: S01.81XA Laceration without foreign body of other part of head, initial encounter (principal); S00.83XA Contusion of other part of head, initial encounter; Z79.82 Long term (current) use of aspirin; E11.9 Type 2 diabetes mellitus without complications; I10 Essential (primary) hypertension; E78.5 Hyperlipidemia, unspecified; Z87.891 Personal history of nicotine dependence; W18.11XA Fall from or off toilet without subsequent striking against object, initial encounter; Y92.121 Bathroom in nursing home as the place of occurrence of the external cause
CPT/HCPCS: 70450; 70486; 72125; 93005; 99284

== ENCOUNTER → 2024-05-04 09:10 | Outpatient (BNVA) | payer MEDICARE, MEDICAID, SELFPAY | PROVIDERS: PCP Family Medicine; Visit Provider Nurse Practitioner Family | DX: I11.0 Hypertensive heart disease with heart failure (principal); I50.32 Chronic diastolic (congestive) heart failure; I48.0 Paroxysmal atrial fibrillation; Z87.891 Personal history of nicotine dependence | CPT/HCPCS: 99214 ==